=== PATIENT | female | born 2000 | race African-American/Black ===

== ENCOUNTER 2023-09-27 09:56 | Outpatient (CLI) | payer OTHER ==
--- NOTE | 2023-09-27 12:06 | MRI Report ---
PROCEDURE: Lower Leg (Tib-Fib) LT WO INDICATIONS: INJURY TO LEFT BROOKS, PAIN/TINGLING TECHNIQUE: Noncontrast coronal and sagittal T1 spin echo and STIR; axial T1 spin echo and T2 fast spin echo with fat saturation through the left lower leg. COMPARISON: None. FINDINGS: Image quality: Excellent. Bones: The visualized bone marrow demonstrates normal signal on all sequences. The overlying cortex appears intact. No fractures lines or intra-osseous lesions. Soft tissues: Mild linear subcutaneous scarring is seen at the anteromedial aspect of the proximal l ower leg. The scanned muscles demonstrate normal overall bulk and internal signal. No soft tissue ma sses are present. IMPRESSION: 1.Focal linear subcutaneous scarring at the anteromedial aspect of the lower leg. No soft tissue hliton a. No acute or chronic denervation changes. No soft tissue mass. 2.No acute trabecular bone injury or fracture. Reviewed by: Manuel Joy MD on 09/27/2023 12:05 PM PDT Approved by: Manuel Joy MD on 09/27/2023 12:05 PM PDT Station ID: [id number]
== END 2023-09-27 09:57 | disposition home or self-care (01) ==
LOC: DI 09:56
PROVIDERS: ATTEND Nurse Practitioner Family
DX: S89.90XA Unspecified injury of unspecified lower leg, initial encounter (principal)

== ENCOUNTER 2025-01-12 07:03 | Inpatient (IN) ==
[2025-01-12] MEDS ORDERED: SODIUM CHLORIDE FLUSH 0.9% 10 ML SYRINGE IVP PRN (07:27)
[2025-01-12] MEDS ORDERED: TERBUTALINE 1 MG/ML VIAL SUBQ PRN (07:27)
[2025-01-12] MEDS ORDERED: hydrALAZINE INJ 20 MG/ML VIAL IVP PRN (07:27)
[2025-01-12] MEDS ORDERED: TRANEXAMIC ACID IN NACL 1,000 MG/100 ML BAG IV PRN (07:27)
[2025-01-12] MEDS ORDERED: METHYLERGONOVINE 0.2 MG/ML VIAL IM PRN (07:27)
[2025-01-12] MEDS ORDERED: LABETALOL 20 MG/4 ML SYRINGE IVP PRN ×3 (07:27)
[2025-01-12] MEDS ORDERED: CARBOPROST TROMETHAMINE 250 MCG/ML VIAL IM PRN (07:27)
[2025-01-12] MEDS ORDERED: OXYTOCIN/SODIUM CHLORIDE 500 ML IV PRN (07:27)
[2025-01-12] MEDS ORDERED: LACTATED RINGERS 1,000 ML IV PRN (07:27)
[2025-01-12] MEDS ORDERED: SODIUM CHLORIDE FLUSH 0.9% 10 ML SYRINGE IVP SCH (08:00)
[2025-01-12 09:05] LABS: HCT - HEMATOCRIT 34.5 % (37.0-47.0); HGB - HEMOGLOBIN 10.6 g/dL (12.0-16.0); MEAN PLATELET VOLUME 10.6 fL (7.9-10.8); NRBC ABSOLUTE COUNT (AUTO) 0.00 x10^3/uL; NUCLEATED RED BLOOD CELLS AUTO 0.0 /100WBC; PLT - PLATELET COUNT 219 10^3/uL (130-450); RED CELL DISTRIBUTION WIDTH 14.6 % (12.0-15.0)
[2025-01-12 09:18] LABS: ALT ALANINE AMINOTRANSFERASE 9.0 IU/L (10-60); AST ASPARTATE AMINOTRANSFERASE 11.0 IU/L (10-42); BUN - BLOOD UREA NITROGEN 6.0 mg/dL (6-20); CARBON DIOXIDE - CO2 22.0 mmol/L (21-32); CREATININE 0.8 mg/dL (0.6-1.3); GFR - MDRD 105.0 (>89)
--- NOTE | 2025-01-12 09:59 | HISTORY & PHYSICAL EXAMINATION ---
Admit History Smoking Status: Former smoker HPI Current : Vital Signs Temperature 98.2 F 01/12/25 08:08 Pulse Rate 98 01/12/25 08:08 Respiratory Rate 18 01/12/25 08:08 Blood Pressure 133/85 H 01/12/25 08:08 Meds/Allgy Home Medications Ambulatory Orders Medication Instructions Recorded Confirmed vits no.126-ferrous fum tab PO 07/01/2401/08 28 mg iron-folic acid 800 mcg tablet (Classic ) aspirin 81 mg tablet 81 mg PO QDAY 08/21/2401/08 calcium carbonate (Tums) 300 mg PO BID 10/27/2401/08 breast pump #1 ea 11/06/24 01/08/25 blood-glucose meter (True Metrix #1 ea 12/12/24 Air Glucose Meter kit) blood sugar diagnostic (True #100 ea 12/15/24 01/08/25 Metrix Glucose Test Strip) lancets (Lancets,Ultra Thin) #100 ea 12/15/24 01/08/25 Allergies Allergies Allergy/AdvReac Type Severity Reaction Status Date / Time No Known Drug Allergies Allergy Verified 01/08/25 13:48 PFSH Active Problems All Active Problems (Updated 12/29/24 @ 15:11 by Nasrin Hughes MA) Supervision of high risk in third trimester (Acute) Glucosuria (Acute) Elevated random blood glucose level (Acute) Preeclampsia (Acute) Supervision of high risk in second trimester (Acute) Chronic hypertension affecting (Acute) Supervision of normal (Acute) Asthma (Acute) Medical History Medical History (Updated 12/29/24 @ 15:11 by Nasrin Hughes MA) Encounter for screening for Streptococcus B Positive test Family History Family History (Updated 07/01/24 @ 10:51 by Phoebe Bishop RN) Aunt Asthma Cancer Maternal grandmother High blood pressure Social History Social History (Updated 12/15/24 @ 03:42 by MALU Giang) Smoking Status: Smoker with current status unk Number of Years Smoked: 5 Do you dip or chew tobacco?: No ETOH Use: None Substance Use: denies use Physical Abdominal Exam Vital Signs: Temp Pulse Resp BP 98.2 F 98 18 133/85 H 01/12/25 08:08 01/12/25 08:08 01/12/25 08:08 01/12/25 08:08 Plan for Labor Plan For Labor I expect patient to be DC'd or transferred within 96 hours.: Yes Plan for Labor: Joey is a 24yo @ 37.0wks gestation by LMP c/w 10.3wk U/S who presents to [facility] for medical induction of labor due to preeclampsia without severe features. She denies vaginal bleeding, leakage of fluid or contractions. She reports consistent movements. She denies headaches, visual disturbances, RUQ or epigastric pain or edema. Upon arrival SVE was deferred due to early gestation and absence of contractions. FHR baseline 140s, moderate variability, + accels, no decels. No contractions appreciated via tocometry. She has been a patient of [facility] for the duration of her . Her has been complicated by chronic hypertension with superimposed preeclampsia without severe features. She is not on medications and her blood pressure has normalized since her diagnosis. She has been co-managed by midwifery care and physicians. We discussed if medications are required for management of blood pressure related complications, her care will be transferred to physicians for management. Pt and her partner both verbalized understanding. She will be admitted to [facility] for pre-induction cervical ripening with misoprostol. artist's representative physician notified of patient admission and will consult with change in patient status. In the event of an emergency, ACCEPTS the administration of blood products ; Partner Darrell G1: current LMP:04/28/24 CT by LMP: 02/02/25 U/S: @ 10.4wks c/w LMP dating. CT by LMP 02/03/[address]: 02/02/2025 Problems: Chronic hypertension: Multiple elevated blood pressures prior to 20 weeks. -Not current on medication and blood pressure has normalized. -Baseline labs: Platelets: 241, AST/ALT: 01/20, creatinine 0.8, P/C: 0.1. Unchanged on second trimester check. -Growth ultrasound scheduled 12/23 -Physician consult 09/19/2024 (see below) -Timing of delivery 37wks. Preeclampsia diagnosis 12/12/2024. Increased NST to twice weekly. 24 hour urine collection ordered 12/12/2024. Will plan for weekly serum labs until delivery. Discussed timing of IOL will be modified with this diagnosis. Glucosuria and elevated spot glucose (normal 1 hour gtt). Profiling supplies ordered 12/12/2024. Monthly growth scans ordered. Physician consult 09/19/[address] Quijano for Chronic hypertension: " Growth in the 40th percentile. Blood pressure is good today, we discussed timing of delivery. Likely 38-39+6. Will plan for monthly growth scans in the third trimester, surveillance at 32 weeks. Discussed baseline labs. No indication for medication today, but will likely see an increase in blood pressure in the third trimester. Plan to see her in 4 weeks for a physician visit, has interim group care visit. Encouraged activity in the 2nd and 3rd trimester" Physician consult 12/18/2024: Preeclampsia, chronic hypertension, glucose monitoring FOB: Male partner Darrell. 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 Stopped drinking alcohol due to . Denies current use of tobacco, marijuana or other recreational drugs. Reports that she is safe in current relationship. Family Hx: Denies family history of congenital anomalies, Cystic Fibrosis or chromosomal abnormalities Pre- weight:160 BMI: 28.3 Blood type: A+ Antibody screen: negative CBC: PLT 241 13.9/40.8 Rubella: Immune VZV: Immune HBsAg: Negative HepC: NR RPR/AB-EIA: NR HIV: NR COVID: x 3 PAP: unsure- but with in the last 3yrs and WNL, no hx abnormal. Complete pap GC/CT: 07/11/2024 negative HSV: denies in self and partner Genetic Testing: Quad screen: Negative/normal 09/02/2024 FAS: 08/22 Placenta: Anterior Cord: 3VC DAVID: 15.1cm EFW: 396g; 48%tile 12/12/2024: DAVID 15.3 12/24/2024: EFW 69.5%tile, DAVID 17.6cm 50gm GCT: 130 TDAP: 11/13/2024 Breast Pump: given 3rd trimester H/H PLT 11.8/36.7/ 219 GBS: POSITIVE Delivery plan: Epidural for pain management. Physical Exam: Normocephalic, atraumatic Heart RRR w/o M/G/R Lungs CTAB Abdomen gravid, soft, nontender EFW 3200g FHR baseline 140s, moderate variability, + accels, no decels No contractions appreciated via tocometry SVE deferred Bilateral LE's no edema Mood is good Assessment: 1. 24yo 2 37.0wks gestation by LMP c/w 10wk U/S 2. Preeclampsia without severe features -q 12 hrs CBC & CMP 3. Chronic hypertension - not on medication. BP normalized. 4. FHR Category I 5. GBS POSITIVE Plan: Admit to [facility] for pre-induction cervical ripening with 50mcg BC misoprostol q 4hrs. Will continue x 12 hours and reevaluate. Discussed placement of cervical ripening balloon at 12hrs vs 24hrs post-cervical ripening. Continuous monitoring. Initiate Ampicillin for GBS prophylaxis per protocol with SROM or onset of active labor. artist's representative physician notified of admission. Jacuzzi PRN. Nitrous oxide PRN. Epidural per maternal request. Anticipate . Conclusion/Plan Lab Results 01/12/25 08:50 01/12/25 08:50
[2025-01-12 20:20] LABS: HCT - HEMATOCRIT 35.9 % (37.0-47.0); HGB - HEMOGLOBIN 11.1 g/dL (12.0-16.0); MEAN PLATELET VOLUME 10.3 fL (7.9-10.8); PLT - PLATELET COUNT 236.0 10^3/uL (130-450); RED CELL DISTRIBUTION WIDTH 14.7 % (12.0-15.0)
[2025-01-12 21:05] LABS: ALT ALANINE AMINOTRANSFERASE 9.0 IU/L (10-60); AST ASPARTATE AMINOTRANSFERASE 11.0 IU/L (10-42); BUN - BLOOD UREA NITROGEN 7.0 mg/dL (6-20); CARBON DIOXIDE - CO2 22.0 mmol/L (21-32); CREATININE 1.0 mg/dL (0.6-1.3); GFR - MDRD 81.0 (>89)
--- NOTE | 2025-01-12 21:49 | PROVIDER PROGRESS NOTE ---
Labor Progress Note Labor Progress Note Labor Progress Note/Additional Text: S: Coping well with contractions. She states she is starting to feel more discomfort with them. She denies headache, visual disturbances, RUQ or epigastric pain. She denies vaginal bleeding or leakage of fluid. Her partner and mother in law are supportive at the bedside. O: FHR baseline 140s, moderate variability, + accels, no decels Contractions palpate mild every 2-6 minutes with soft resting tone SVE 3/60/-2, midposition. Medium consistency. Vertex. CBC & CMP Stable Occasional mildly elevated blood pressure A: 24yo @ 37.0wks gestation by 10.3wk U/S Chronic hypertension with superimposed preeclampsia without severe features Early labor GBS positive FHR Cateogry I P: Initiate pitocin for induction of labor with titration per protocol. Initiate ampicillin for GBS prophylaxis per protocol. Continuous monitoring. Continue q12hr CBC & CMP. Jacuzzi PRN. Nitrous oxide PRN. Epidural per maternal request. Anticipate .
[2025-01-12] MEDS: LACTATED RINGERS 1,000 ML IV SCH (22:01)
[2025-01-12] MEDS: OXYTOCIN/SODIUM CHLORIDE 500 ML IV SCH (22:01)
[2025-01-12] MEDS: AMPICILLIN 2 GM in SODIUM CHLORIDE 0.9% MINIBAG 100 ML IV ONE (22:06)
[2025-01-13] MEDS: AMPICILLIN 1 GM in SODIUM CHLORIDE 0.9% MINIBAG 100 ML IV SCH (02:05)
[2025-01-13] MEDS ORDERED: ONDANSETRON 4 MG/2 ML VIAL ONE (03:17)
[2025-01-13] MEDS: ONDANSETRON 4 MG/2 ML VIAL IVP PRN (03:28)
[2025-01-13] MEDS: fentaNYL 100 MCG/2 ML VIAL IVP PRN (03:46)
[2025-01-13] MEDS ORDERED: LIDOCAINE 2%-EPI 1:100000 20 ML MDV ONE (04:09)
[2025-01-13] MEDS ORDERED: ROPIVACAINE 0.2% 200 MG/100 ML BAG EP ONE (04:09)
[2025-01-13] MEDS ORDERED: ONDANSETRON 4 MG/2 ML VIAL IVP PRN (04:47)
[2025-01-13] MEDS ORDERED: ePHEDrine 50 MG/ML VIAL IVP PRN (04:47)
[2025-01-13] MEDS ORDERED: NALOXONE 0.4 MG/ML VIAL IVP PRN (04:47)
--- NOTE | 2025-01-13 04:47 | ANESTHESIA PROCEDURE NOTE ---
Pre-Anesthesia VS, & Labs Diagnosis Surgical Diagnosis:: Active labor Procedure Procedure: vaginal delivery Vitals Vital Signs: Temp Pulse Resp BP 36.5 C 98 17 142/75 H 01/12/25 19:15 01/12/25 08:08 01/12/25 19:15 01/12/25 19:15 NPO Last Fluid Intake: clear liquids Is Patient ?: Yes Lab Results Current Lab Results: Laboratory Tests 01/12/25 20:04: WBC 8.6, RBC 4.48, Hgb 11.1 L, Hct 35.9 L, MCV 80.1 L, MCH 24.8 L, MCHC 30.9 L, RDW 14.7, Plt Count 236, MPV 10.3, Sodium 135, Potassium 3.8, Chloride 106, Carbon Dioxide 22, Anion Gap 7.0, BUN 7, Creatinine 1.0, Estimated GFR (MDRD) 81 L, Glucose 124 H, Calcium 9.1, Total Bilirubin 0.3, AST 11, ALT 9 L, Alkaline Phosphatase 175 H, Total Protein 6.2 L, Albumin 3.3, Globulin 2.9, Albumin/Globulin Ratio 1.1 01/12/25 08:50: WBC 8.0, RBC 4.29, Hgb 10.6 L, Hct 34.5 L, MCV 80.4 L, MCH 24.7 L, MCHC 30.7 L, RDW 14.6, Plt Count 219, MPV 10.6, Neut # (Auto) 5.2, Lymph # (Auto) 1.9, [place] # (Auto) 0.7, Eos # (Auto) 0.1, Baso # (Auto) 0.0, Absolute Nucleated RBC 0.00, Nucleated RBC % 0.0, Sodium 135, Potassium 3.7, Chloride 106, Carbon Dioxide 22, Anion Gap 7.0, BUN 6, Creatinine 0.8, Estimated GFR (MDRD) 105, Glucose 129 H, Calcium 9.0, Total Bilirubin 0.4, AST 11, ALT 9 L, A lkaline Phosphatase 173 H, Total Protein 6.1 L, Albumin 3.2, Globulin 2.9, Albumin/Globulin Ratio 1.1, Blood Type A POSITIVE, Antibody Screen NEGATIVE Lab results reviewed: Yes 01/12/25 20:04 01/12/25 20:04 Meds/Allgy Home Medications Ambulatory Orders Medication Instructions Recorded Confirmed vits no.126-ferrous fum 1 tab PO DAILY 01/12/25 28 mg iron-folic acid 800 mcg tablet (Classic ) aspirin 81 mg tablet 81 mg PO DAILY 08/21/2410/01 calcium carbonate (Tums) 300 mg PO BID 10/27/2401/12 breast pump #1 ea 11/06/24 01/08/25 blood-glucose meter (True Metrix #1 ea 12/12/24 Air Glucose Meter kit) blood sugar diagnostic (True #100 ea 12/15/24 01/08/25 Metrix Glucose Test Strip) lancets (Lancets,Ultra Thin) #100 ea 12/15/24 01/08/25 Allergies Allergies Allergy/AdvReac Type Severity Reaction Status Date / Time No Known Drug Allergies Allergy Verified 01/08/25 13:48 PFSH Active Problems All Active Problems Supervision of high risk in third trimester (Acute) Glucosuria (Acute) Elevated random blood glucose level (Acute) Preeclampsia (Acute) Supervision of high risk in second trimester (Acute) Chronic hypertension affecting (Acute) Supervision of normal (Acute) Asthma (Acute) Medical History Medical History Encounter for screening for Streptococcus B Positive test Family History Family History (Updated 07/01/24 @ 10:51 by Phoebe Bishop RN) Aunt Asthma Cancer Maternal grandmother High blood pressure Social History Social History (Updated 12/15/24 @ 03:42 by MALU Giang) Smoking Status: Smoker with current status unk Number of Years Smoked: 5 Do you dip or chew tobacco?: No ETOH Use: None Substance Use: denies use POLST Patient has POLST: No POLST CPR Status: Attempt Resuscitation (CPR) Level of Medical Intervention: Full Treatment Anesthesia Exam (Expanded) Exam General: Alert, Oriented x3 and Cooperative Dental: WNL Mouth Openin Fingerbreadth Neck Mobility: Normal Mallampati classification: II Thyromental Distance: 4-6 cm Plan Plan Anesthesia Type: Epidural Consent for Procedure(s) Verified and Reviewed: Yes Code Status: Attempt Resuscitation ASA Classification ASA classification: 2-Mild systemic disease Is this case an emergency?: No
[2025-01-13 08:11] LABS: HCT - HEMATOCRIT 37.4 % (37.0-47.0); HGB - HEMOGLOBIN 11.2 g/dL (12.0-16.0); MEAN PLATELET VOLUME 10.8 fL (7.9-10.8); PLT - PLATELET COUNT 235.0 10^3/uL (130-450); RED CELL DISTRIBUTION WIDTH 14.8 % (12.0-15.0)
[2025-01-13 08:22] LABS: ALT ALANINE AMINOTRANSFERASE 9.0 IU/L (10-60); AST ASPARTATE AMINOTRANSFERASE 12.0 IU/L (10-42); BUN - BLOOD UREA NITROGEN 8.0 mg/dL (6-20); CARBON DIOXIDE - CO2 23.0 mmol/L (21-32); CREATININE 1.0 mg/dL (0.6-1.3); GFR - MDRD 81.0 (>89)
--- NOTE | 2025-01-13 10:25 | PROVIDER PROGRESS NOTE ---
Labor Progress Note Labor Progress Note Labor Progress Note/Additional Text: S: Feeling comfortable with epidural. Denies headache, visual disturbances, RUQ or epigastric pain. Small amount of bloody show with position changes. Mood is good. Her is supportive at the bedside. O: FHR baseline 140s, moderate variability, + accels, no decels Contractions palpate moderate every 4-8 minutes with soft resting tone SVE 5/70/-2, medium, Vertex. AROM moderate amount of clear fluid A: 24yo @ 37.1wks gestation Chronic hypertension with superimposed preeclampsia without severe features Early labor GBS positive FHR Category I P: Continue pitocin for induction of labor with titration per protocol. Continuous monitoring. Continue ampicillin for GBS prophylaxis per protocol. Maintain epidural for pain management. Encouraged rotation in bed on peanut ball. Anticipate .
[2025-01-13] MEDS: ROPIVACAINE 0.2% 200 MG/100 ML BAG EP PRN (11:58)
[2025-01-13] MEDS: OXYTOCIN 10 UNIT/ML VIAL IM PRN (13:26)
[2025-01-13] MEDS ORDERED: ACETAMINOPHEN 500 MG TABLET PO PRN (13:39)
[2025-01-13] MEDS ORDERED: WITCH HAZEL/GLYCERIN 1 PAD TOP PRN (13:39)
[2025-01-13] MEDS ORDERED: SIMETHICONE CHEW 80 MG TABLET PO PRN (13:39)
[2025-01-13] MEDS ORDERED: HYDROCORTISONE 1% CREAM 28 GM TUBE TOP PRN (13:39)
[2025-01-13] MEDS ORDERED: OXYTOCIN/SODIUM CHLORIDE 500 ML IV PRN (13:39)
--- NOTE | 2025-01-13 13:49 | DELIVERY NOTE ---
OB Labor and Delivery Note Delivery Comments (Free Text/Narrative) Delivery Comments (Free Text/Narrative): Labor: This 24 year old @ 37.1 wks gestation by LMP c/w 10wk U/S presented to [facility] for medical induction of labor secondary to chronic hypertension with superimposed preeclampsia without severe features. Cervical exam was deferred upon admission due to early gestation and absence of contractions. She was given 2 doses of 50mcg BC misoprostol. FHR demonstrated Category I pattern throughout labor. Normal labor course. Epidural placed per maternal request. AROM occurred @ 0804 and was noted to be a moderate amount of clear fluid. She progressed to c/c/+1 at 1238. : Normal SVB of viable female on 01/13/2025 @ 1317. No nucal cord. The was placed on maternal abdomen, stimulated, dried, and placed skin to skin. 's were 8/9 at 1 and 5 min respectively. Pitocin administered via IV for hemostasis. The umbilical cord was allowed to stop pulsating at which time it was doubly clamped by CNM and cut by FOB. Cord blood was obtained. 3VC. Fundal massage and gentle cord traction applied for active management of the third stage. Placenta delivered spontaneously and intact at 1320. QBL 360mm. IV infiltrated and pitocin infusion was shut off secondarily. 10mU IM pitocin a dministered followed by 600mcg BC misoprostol. Uterine fundus firm. Cervix at level of vaginal introitus and appears to be oozing but no obvious bleeding. Fourth stage: Uterine fundus firm and there is no excessive bleeding. The perineum, vagina, and cervix were inspected and found to be intact. Tissues well approximated. initiated. Both mother and baby were left in stable condition.
[2025-01-13] MEDS: ACETAMINOPHEN 500 MG TABLET PO PRN (15:11)
[2025-01-13] MEDS: IBUPROFEN 800 MG TABLET PO PRN (15:11)
[2025-01-13 21:16] LABS: HCT - HEMATOCRIT 34.0 % (37.0-47.0); HGB - HEMOGLOBIN 10.4 g/dL (12.0-16.0); MEAN PLATELET VOLUME 11.0 fL (7.9-10.8); NRBC ABSOLUTE COUNT (AUTO) 0.00 x10^3/uL; NUCLEATED RED BLOOD CELLS AUTO 0.0 /100WBC; PLT - PLATELET COUNT 235 10^3/uL (130-450); RED CELL DISTRIBUTION WIDTH 14.7 % (12.0-15.0)
[2025-01-13 21:31] LABS: ALT ALANINE AMINOTRANSFERASE 9.0 IU/L (10-60); AST ASPARTATE AMINOTRANSFERASE 14.0 IU/L (10-42); BUN - BLOOD UREA NITROGEN 12.0 mg/dL (6-20); CARBON DIOXIDE - CO2 22.0 mmol/L (21-32); CREATININE 1.4 mg/dL (0.6-1.3); GFR - MDRD 55.0 (>89)
[2025-01-13 21:36] LABS: SLIDE REVIEW? Indicated
[2025-01-13] MEDS: DOCUSATE SODIUM 100 MG CAPSULE PO SCH (22:23)
[2025-01-13 23:32] LABS: PLATELET MORPHOLOGY NORMAL APPEARANCE (NORMAL); RBC MORPHOLOGY (MULTIPLE) NORMAL APPEARANCE (NORMAL)
[2025-01-13 23:33] LABS: PLATELET ESTIMATE, MANUAL NORMAL (130-450,000) (NORMAL)
[2025-01-14] MEDS ORDERED: CALCIUM GLUC 1,000MG/50ML-NACL 1,000 MG/50 ML BAG IV ONE (00:46)
--- NOTE | 2025-01-14 00:52 | PROVIDER PROGRESS NOTE ---
Progress Note Progress Note Progress Note: Called to see patient by RN for significant headache. getting worse since delivery. not better at all when given tyelnol or motrin. behind eyes into temples. bp 134/83. exam: appears well. moving around in bed in the dark room swelling minimal. reflexes very brisk in legs and arms. Creatinine at 2100 up to 1.4. a/p although bp is not elevated, her elevated creatinine and headache along with very brisk reflexes are concerning and I recommend that she start magnesium for seizure prophylaxis. with this I also assume care of the patient from [facility]. given her elevated creatinine will give 4 gram of magnesium over 1 hr and then 1 gram an hour. recheck labs at 0500. oxycodone if the headache is not better with magnesium explained to patient and her partner. questions answered.
[2025-01-14] MEDS ORDERED: oxyCODONE 5 MG TABLET PO PRN (00:58)
[2025-01-14] MEDS: MAGNESIUM SULFATE 4 GRAM 4 GM/50 ML BAG IV ONE (01:40)
[2025-01-14] MEDS: MAGNESIUM SULFATE IN WATER 20 GM/500 ML IV.SOLN IV SCH (02:46)
[2025-01-14 07:39] LABS: BUN - BLOOD UREA NITROGEN 12.0 mg/dL (6-20); CARBON DIOXIDE - CO2 22.0 mmol/L (21-32); CREATININE 1.2 mg/dL (0.6-1.3); GFR - MDRD 66.0 (>89)
--- NOTE | 2025-01-14 09:16 | PROVIDER PROGRESS NOTE ---
Current Medications Current Medications Current Medications: Current Medications Generic Name Dose Route Start Last Admin Trade Name Freq PRN Reason Stop Dose Admin Acetaminophen 1,000 mg 01/12/25 07:27 01/14/25 06:13 Acetaminophen 500 Mg Tablet PO 1,000 mg Q8H PRN Administration Mild Pain or Fever>38C(100.4F) Acetaminophen 1,000 mg 01/13/25 13:39 Acetaminophen 500 Mg Tablet PO Q8HR PRN Mild Pain or Fever>38C(100.4F) Docusate Sodium 100 mg 01/13/25 21:00 01/13/25 22:23 Docusate Sodium 100 Mg Capsule PO 100 mg BID BARRY Administration Ephedrine Sulfate 5 mg 01/13/25 04:47 Ephedrine 50 Mg/Ml Vial IVP Q5M PRN For SBP<100;give until SBP>100 Hydralazine HCl 5 - 10 mg 01/12/25 07:27 Hydralazine Inj 20 Mg/Ml Vial IVP Q20M PRN SBP> or= 160 OR DBP> or= 110 Protocol Hydrocortisone 1 applic 01/13/25 13:39 Hydrocortisone 1% Cream 28 Gm Tube TOP QID PRN PERINEAL REPAIR Magnesium Sulfate 20 gm in 500 mls @ 25 mls/hr 01/14/25 00:38 01/14/25 02:46 Magnesium Sulf 20 G/500 Ml Bag IV 1 gm/hr .Q20H BARRY 25 mls/hr 1 GM/HR Administration Ibuprofen 800 mg 01/13/25 13:39 01/14/25 06:13 Ibuprofen 800 Mg Tablet PO 800 mg Q8HR PRN Administration Moderate Pain (Level 4-6) Labetalol HCl 20 mg 01/12/25 07:27 Labetalol 20 Mg/4 Ml Syringe IVP .ONCE PRN SBP> or= 160 OR DBP> or= 110 Protocol Labetalol HCl 20 - 40 mg 01/12/25 07:27 Labetalol 20 Mg/4 Ml Syringe IVP Q10M PRN SBP> or= 160 OR DBP> or= 110 Protocol Labetalol HCl 20 - 80 mg 01/12/25 07:27 Labetalol 20 Mg/4 Ml Syringe IVP Q10M PRN SBP> or= 160 OR DBP> or= 110 Protocol Nifedipine 10 - 20 mg 01/12/25 07:27 Nifedipine 10 Mg Capsule PO Q20M PRN SBP> or= 160 OR DBP> or= 110 Protocol Oxycodone HCl 5 mg 01/14/25 00:58 Oxycodone 5 Mg Tablet PO Q4HR PRN Moderate Pain (Level 4-6) Simethicone 80 mg 01/13/25 13:39 Simethicone Chew 80 Mg Tablet PO TID PRN Gas Witch Lucy/Glycerin 1 pad 01/13/25 13:39 Witch Lucy/Glycerin 1 Pad TOP PRN PRN PERINEAL REPAIR Objective Vital Signs/Intake & Output Vital Signs: Vital Signs x48h Temp Pulse Pulse Resp BP Pulse Ox 01/14/25 07:56 97.7 F 91 14 136/86 H 98 01/14/25 06:03 103 H 16 123/79 97 01/14/25 05:00 93 17 131/77 H 96 01/14/25 04:30 97 125/77 96 01/14/25 04:00 86 131/89 H 98 01/14/25 03:42 72 17 125/82 97 01/14/25 03:01 79 16 126/73 96 01/14/25 02:30 85 18 129/80 97 01/14/25 02:26 91 18 129/80 96 01/14/25 02:21 88 20 122/73 98 01/14/25 02:14 86 20 122/79 97 01/14/25 02:09 100 18 128/67 97 01/14/25 02:01 130/79 01/14/25 01:55 92 19 111/74 97 01/14/25 01:32 98.6 F 81 18 127/89 97 Intake & Output: Intake & Output 01/11/25 01/12/25 01/13/25 01/14/25 23:59 23:59 23:59 23:59 Intake Total 1000 / 1000 1050 / 1050 550 / 550 Output Total 1800 / 1800 1000 / 1000 1100 / 1100 Balance -800 / -800 50 / 50 -550 / -550 Weight (kg) 178 lb 4.005 oz 170 lb 9.6 oz Lab Results 01/13/25 21:10 01/14/25 07:15 Other Labs: Lab Results x24hrs 01/14/25 01/13/25 Range/Units 07:15 21:10 WBC 12.1 H (4.8-10.8) x10^3/uL RBC 4.25 (4.20-5.40) 10^6/uL Hgb 10.4 L (12.0-16.0) g/dL Hct 34.0 L (37.0-47.0) % MCV 80.0 L (81.0-99.0) fL MCH 24.5 L (27.0-31.0) pg MCHC 30.6 L (32.0-36.0) g/dL RDW 14.7 (12.0-15.0) % Plt Count 235 (130-450) 10^3/uL MPV 11.0 H (7.9-10.8) fL Neut # (Auto) 7.9 H (1.5-6.6) 10^3/uL Lymph # (Auto) 2.4 (1.5-3.5) 10^3/uL [place] # (Auto) 1.6 H (0.0-1.0) 10^3/uL Eos # (Auto) 0.1 (0.0-0.7) 10^3/uL Baso # (Auto) 0.0 (0.0-0.1) 10^3/uL Absolute Nucleated RBC 0.00 x10^3/uL Band Neuts % (Manual) Not Reportable Abnorm Lymph % (Manual) Not Reportable Nucleated RBC % 0.0 /100WBC Neutrophils # (Manual) Not Reportable Lymphocytes # (Manual) Not Reportable Monocytes # (Manual) Not Reportable Eosinophils # (Manual) Not Reportable Basophils # (Manual) Not Reportable Differential Comment MANUAL=AUTO DIFF Manual Slide Review Indicated Platelet Estimate NORMAL (130-450,000) (NORMAL) Platelet Morphology NORMAL APPEARANCE (NORMAL) RBC Morph Micro Appear NORMAL APPEARANCE (NORMAL) Sodium 136 133 L (135-145) mmol/L Potassium 4.0 3.9 (3.5-4.5) mmol/L Chloride 108 105 (101-111) mmol/L Carbon Dioxide 22 22 (21-32) mmol/L Anion Gap 6.0 6.0 (6-13) BUN 12 12 (6-20) mg/dL Creatinine 1.2 1.4 H (0.6-1.3) mg/dL Estimated GFR (MDRD) 66 L 55 L (>89) Glucose 117 H 103 (74-104) mg/dL Calcium 8.3 L 8.6 (8.5-10.3) mg/dL Magnesium 3.9 H (1.7-2.3) mg/dL Total Bilirubin 0.4 (0.2-1.0) mg/dL AST 14 (10-42) IU/L ALT 9 L (10-60) IU/L Alkaline Phosphatase 149 H (42-121) IU/L Total Protein 5.7 L (6.4-8.9) g/dL Albumin 2.9 L (3.2-5.5) g/dL Globulin 2.8 (2.1-4.2) g/dL Albumin/Globulin Ratio 1.0 (1.0-2.2) Assessment/Plan Problem List (1) Preeclampsia: Impression: TIME OF ENCOUNTER: 0019 S: Patient reports headache that has been increasing in intensity for the past 4 hours. She denies visual distrubances or RUQ pain. O: BP Normotensive at present time Creatinine 1.4 (admit 0.8) AST/ALT 14/9 Plt 235 DTRs brisk A: 24yo -->P1 PPD#1 s/p TSVD viable female infant on 01/13/2025 @ 1317 Preeclampsia with severe features Intact perineum P: on call pharmacy technician physician notified and MgSO4 will be initiated per protocol. Full care handed to precision agriculture technician physician Dr. Ireland who accepts care of patient at this time and will manage the patient for the remainder of her hospital course. Qualifiers: Trimester: unspecified trimester Qualified Code(s): O14.90 - Unspecified pre-eclampsia, unspecified trimester
--- NOTE | 2025-01-14 10:00 | PROVIDER PROGRESS NOTE ---
Subjective Prog Note Date Prog Note Date: 01/14/25 Prog Note Time: 10:02 Subjective Subjective: Reports feeling well this morning. Headache that she had last evening has completely resovled. No vision changes or upper abdominal pain. No CP, SOB. Reports that she feels great on the magnesium actually, not having any bothersome side effects. She is ambulating to the bathroom and urinating without difficulty, using hat to keep track of output, Feels that swelling is better. Bleeding is light. Current Medications Current Medications Current Medications: Current Medications Generic Name Dose Route Start Last Admin Trade Name Freq PRN Reason Stop Dose Admin Acetaminophen 1,000 mg 01/12/25 07:27 01/14/25 06:13 Acetaminophen 500 Mg Tablet PO 1,000 mg Q8H PRN Administration Mild Pain or Fever>38C(100.4F) Acetaminophen 1,000 mg 01/13/25 13:39 Acetaminophen 500 Mg Tablet PO Q8HR PRN Mild Pain or Fever>38C(100.4F) Docusate Sodium 100 mg 01/13/25 21:00 01/13/25 22:23 Docusate Sodium 100 Mg Capsule PO 100 mg BID BARRY Administration Ephedrine Sulfate 5 mg 01/13/25 04:47 Ephedrine 50 Mg/Ml Vial IVP Q5M PRN For SBP<100;give until SBP>100 Hydralazine HCl 5 - 10 mg 01/12/25 07:27 Hydralazine Inj 20 Mg/Ml Vial IVP Q20M PRN SBP> or= 160 OR DBP> or= 110 Protocol Hydrocortisone 1 applic 01/13/25 13:39 Hydrocortisone 1% Cream 28 Gm Tube TOP QID PRN PERINEAL REPAIR Magnesium Sulfate 20 gm in 500 mls @ 25 mls/hr 01/14/25 00:38 01/14/25 02:46 Magnesium Sulf 20 G/500 Ml Bag IV 1 gm/hr .Q20H BARRY 25 mls/hr 1 GM/HR Administration Ibuprofen 800 mg 01/13/25 13:39 01/14/25 06:13 Ibuprofen 800 Mg Tablet PO 800 mg Q8HR PRN Administration Moderate Pain (Level 4-6) Labetalol HCl 20 mg 01/12/25 07:27 Labetalol 20 Mg/4 Ml Syringe IVP .ONCE PRN SBP> or= 160 OR DBP> or= 110 Protocol Labetalol HCl 20 - 40 mg 01/12/25 07:27 Labetalol 20 Mg/4 Ml Syringe IVP Q10M PRN SBP> or= 160 OR DBP> or= 110 Protocol Labetalol HCl 20 - 80 mg 01/12/25 07:27 Labetalol 20 Mg/4 Ml Syringe IVP Q10M PRN SBP> or= 160 OR DBP> or= 110 Protocol Nifedipine 10 - 20 mg 01/12/25 07:27 Nifedipine 10 Mg Capsule PO Q20M PRN SBP> or= 160 OR DBP> or= 110 Protocol Oxycodone HCl 5 mg 01/14/25 00:58 Oxycodone 5 Mg Tablet PO Q4HR PRN Moderate Pain (Level 4-6) Simethicone 80 mg 01/13/25 13:39 Simethicone Chew 80 Mg Tablet PO TID PRN Gas Witch Lucy/Glycerin 1 pad 01/13/25 13:39 Witch Lucy/Glycerin 1 Pad TOP PRN PRN PERINEAL REPAIR Objective Vital Signs/Intake & Output Reviewed Vital Signs: Yes Vital Signs: Vital Signs x48h Temp Pulse Pulse Resp BP Pulse Ox 01/14/25 07:56 36.5 C 91 14 136/86 H 98 01/14/25 06:03 103 H 16 123/79 97 01/14/25 05:00 93 17 131/77 H 96 01/14/25 04:30 97 125/77 96 01/14/25 04:00 86 131/89 H 98 01/14/25 03:42 72 17 125/82 97 01/14/25 03:01 79 16 126/73 96 01/14/25 02:30 85 18 129/80 97 01/14/25 02:26 91 18 129/80 96 01/14/25 02:21 88 20 122/73 98 01/14/25 02:14 86 20 122/79 97 01/14/25 02:09 100 18 128/67 97 01/14/25 02:01 130/79 Intake & Output: Intake & Output 01/11/25 01/12/25 01/13/25 01/14/25 23:59 23:59 23:59 23:59 Intake Total 1000 / 1000 1050 / 1050 550 / 550 Output Total 1800 / 1800 1000 / 1000 1100 / 1100 Balance -800 / -800 50 / 50 -550 / -550 Weight (kg) 80.853 kg 77.383 kg Objective Comments/Other: Gen: NAD CV: RRR Resp: CTAB, no crackles Abd: soft, non tender Ext: only trace LE edema, no evidence of VTE Lab Results 01/13/25 21:10 01/14/25 07:15 Other Labs: Lab Results x24hrs 01/14/25 01/13/25 Range/Units 07:15 21:10 WBC 12.1 H (4.8-10.8) x10^3/uL RBC 4.25 (4.20-5.40) 10^6/uL Hgb 10.4 L (12.0-16.0) g/dL Hct 34.0 L (37.0-47.0) % MCV 80.0 L (81.0-99.0) fL MCH 24.5 L (27.0-31.0) pg MCHC 30.6 L (32.0-36.0) g/dL RDW 14.7 (12.0-15.0) % Plt Count 235 (130-450) 10^3/uL MPV 11.0 H (7.9-10.8) fL Neut # (Auto) 7.9 H (1.5-6.6) 10^3/uL Lymph # (Auto) 2.4 (1.5-3.5) 10^3/uL [place] # (Auto) 1.6 H (0.0-1.0) 10^3/uL Eos # (Auto) 0.1 (0.0-0.7) 10^3/uL Baso # (Auto) 0.0 (0.0-0.1) 10^3/uL Absolute Nucleated RBC 0.00 x10^3/uL Band Neuts % (Manual) Not Reportable Abnorm Lymph % (Manual) Not Reportable Nucleated RBC % 0.0 /100WBC Neutrophils # (Manual) Not Reportable Lymphocytes # (Manual) Not Reportable Monocytes # (Manual) Not Reportable Eosinophils # (Manual) Not Reportable Basophils # (Manual) Not Reportable Differential Comment MANUAL=AUTO DIFF Manual Slide Review Indicated Platelet Estimate NORMAL (130-450,000) (NORMAL) Platelet Morphology NORMAL APPEARANCE (NORMAL) RBC Morph Micro Appear NORMAL APPEARANCE (NORMAL) Sodium 136 133 L (135-145) mmol/L Potassium 4.0 3.9 (3.5-4.5) mmol/L Chloride 108 105 (101-111) mmol/L Carbon Dioxide 22 22 (21-32) mmol/L Anion Gap 6.0 6.0 (6-13) BUN 12 12 (6-20) mg/dL Creatinine 1.2 1.4 H (0.6-1.3) mg/dL Estimated GFR (MDRD) 66 L 55 L (>89) Glucose 117 H 103 (74-104) mg/dL Calcium 8.3 L 8.6 (8.5-10.3) mg/dL Magnesium 3.9 H (1.7-2.3) mg/dL Total Bilirubin 0.4 (0.2-1.0) mg/dL AST 14 (10-42) IU/L ALT 9 L (10-60) IU/L Alkaline Phosphatase 149 H (42-121) IU/L Total Protein 5.7 L (6.4-8.9) g/dL Albumin 2.9 L (3.2-5.5) g/dL Globulin 2.8 (2.1-4.2) g/dL Albumin/Globulin Ratio 1.0 (1.0-2.2) Assessment/Plan Problem List (1) care and examination of lactating mother: Impression: Continue routine care (2) Preeclampsia: Impression: - BPs currently normal range and asymptomatic. ALLISON yesterday with Cr of 1.4 which downtrended to 1.2. Excellent diuresis today. On magnesium sulfate for seizure prophylaxis, plan to discontinue after 24 hrs. Will order repeat labs for AM. Qualifiers: Trimester: unspecified trimester Qualified Code(s): O14.90 - Unspecified pre-eclampsia, unspecified trimester
[2025-01-15 07:28] LABS: HCT - HEMATOCRIT 32.1 % (37.0-47.0); HGB - HEMOGLOBIN 9.8 g/dL (12.0-16.0); MEAN PLATELET VOLUME 10.0 fL (7.9-10.8); PLT - PLATELET COUNT 225.0 10^3/uL (130-450); RED CELL DISTRIBUTION WIDTH 14.7 % (12.0-15.0)
[2025-01-15 07:49] LABS: ALT ALANINE AMINOTRANSFERASE 12.0 IU/L (10-60); AST ASPARTATE AMINOTRANSFERASE 18.0 IU/L (10-42); BUN - BLOOD UREA NITROGEN 11.0 mg/dL (6-20); CARBON DIOXIDE - CO2 24.0 mmol/L (21-32); CREATININE 1.0 mg/dL (0.6-1.3); GFR - MDRD 81.0 (>89)
[2025-01-15] MEDS: ACETAMINOPHEN 500 MG TABLET PO PRN (09:47)
--- NOTE | 2025-01-15 22:59 | PROVIDER PROGRESS NOTE ---
Progress Note Progress Note Progress Note: patient seen and examined at lunch time an din the am. She was breast feeding and doing well but still had a head ache . bps were good. labs improving. Seems to make sense fo her to stay over night anohte rnight. plan for dc tomorrow.
--- NOTE | 2025-01-16 08:46 | Discharge Summary ---
Discharge Summary Admit Date: 01/12/25 Discharge Date: 01/16/25 Discharging Provider: Garett Quijano MD Code Status: Attempt Resuscitation DIAGNOSES Admission Diagnoses: Chronic hypertension Elevated glucose in 37 weeks gestation Discharge Diagnoses with Status of Each Condition: Same Preeclampsia severe features Status post spontaneous vaginal delivery Delivered of lan HPI History of Present Illness: Subjective Patient reports she is doing well. Lochia appropriate. Denies heavy bleeding. Ambulating. Pelvic and abdominal pain well-controlled. Tolerating oral intake. Diet: Regular. Voiding without difficulty. Passing flatus. Denies BM. Patient is bonding with baby in room Feeding doing well Denies feeling lightheaded, dizzy or excessively fatigued. Objective General: Alert, oriented, no apparent distress. Cardiovascular: Regular rate. Regular rhythm. Lungs: No increased work of breathing. Abdomen: Uterus firm. Below umbilicus. No guarding or rebound. Extremities: No pain on palpation. No cords palpated. Distal pulses intact. HOSPITAL COURSE Hospital Course: Patient was admitted for induction of labor secondary to chronic hypertension with superimposed preeclampsia. She had induction of labor and subsequent delivery spontaneous vaginal delivery that was uncomplicated. , she developed severe features, although no severe range pressures. She was started on magnesium sulfate for a headache, acute kidney injury, and this improved. Labs gradually proved during stay and remained stable afterwards. She was discharged on day 3. She was counseled on pression, preeclampsia severe features, other routine care. ALLERGIES Allergies Allergy/AdvReac Type Severity Reaction Status Date / Time No Known Drug Allergies Allergy Verified 01/08/25 13:48 MEDICATIONS Ambulatory Orders Medication Instructions Recorded Confirmed vits no.126-ferrous fum 1 tab PO DAILY 01/12/25 28 mg iron-folic acid 800 mcg tablet (Classic ) calcium carbonate (Tums) 300 mg PO BID 10/27/2401/12 breast pump #1 ea 11/06/24 01/08/25 PHYSICAL EXAM AT DISCHARGE Vital Signs: Vital Signs x48h Temp Pulse Resp BP 01/16/25 04:56 36.8 C 78 16 133/81 H LABS 01/15/25 07:18 01/15/25 07:18 FOLLOW UP Follow Up: With [facility] women's care in 1 week TIME SPENT Time Spent in Discharge (Minutes): 30 Discharge Plan Discharge Patient Disposition: 01 Home, Self Care Prescriptions: Continued (DME) breast pump Device See Rx Instructions .Route Qty: 1 0RF Rx Instructions: As directed Tums 300 mg (750 mg) tablet,chewable 300 mg PO BID Classic 28 mg iron- 800 mcg tablet 1 tab PO DAILY Discontinued aspirin 81 mg tablet 81 mg PO DAILY (DME) blood-glucose meter [True Metrix Air Glucose Meter] Kit See Rx Instructions .Route Qty: 1 0RF Rx Instructions: As directed (DME) lancets [Lancets,Ultra Thin] Misc See Rx Instructions .Route Qty: 100 2RF Rx Instructions: As directed. Use to take blood sugar 4x each day. (DME) True Metrix Glucose Test Strip Strip See Rx Instructions .ROUTE .MEDSUPPLY Qty: 100 3RF Rx Instructions: As directed. Use to take blood glucose 4x/day Activity Restrictions: Additional Comments Diet: Regular Print Language: Lebanese Patient Instructions: After a Vaginal , Depression, Understanding Preeclampsia Follow-up Care: Garett Quijano MD [Provider Admit Priv/Credential, Obstetrics/Gynecology] Vitals documented within 30 minutes of discharge?: Yes
[2025-01-16 12:08] VITALS: TEMP 98.6; O2SAT 97
[2025-01-16 16:05] VITALS: BP 129/84
--- NOTE | 2025-01-16 17:32 | Labor Flowsheet ---
Labor Flowsheet Datetime Report Generated by CPN: 01/16/2025 17:32 Datetime: 01/14/2025 07:56 VITAL SIGNS NBP Sys/Bianca/Mean (mmHg): 136 : 86 : 97 Pulse: 91 Datetime: 01/14/2025 05:35 SpO2 (%): 97 Datetime: 01/14/2025 03:41 Stage of : Pain Assessment Comments: bp inacurrate due to pt moving arm. will retake Datetime: 01/13/2025 17:52 Temperature (C): 37.2 Datetime: 01/13/2025 16:00 COMMUNICATION Communication: RN at Bedside (Annotations: Epidural cath discontinued/ catheter tip intact/) Datetime: 01/13/2025 15:00 Membranes Ruptured Date/Time: 01/13/2025 08:04 Cervical Ripening Agents: Cytotec @ Datetime: 01/13/2025 13:42 Medication Comments: misoprostol 800 mcg MI Datetime: 01/13/2025 13:26 MEDICATIONS Pitocin (milliunits): Oxytocin 10 U IM Datetime: 01/13/2025 13:17 Communication Comments: Delivery of alive baby Girl Datetime: 01/13/2025 13:16 LaborFlag: Labor Datetime: 01/13/2025 13:10 UTERINE ACTIVITY Monitor Mode: External Frequency (min): 2-3 Quality: Strong Duration (sec): 60-70 Pattern: Normal: <= 5 Contractions in 10 Minutes Resting Tone (Palpate): Relaxed Pitocin Checklist: At Least 1 Acceleration of 15 bpm x 15 Seconds in 30 Minutes or Adequate Variability; No More than 1 Late Deceleration Occurred in Past 30 Minutes; No More than 2 Variable Decelerations > 60 Seconds in Duration and decreasing >60 bpm in 30 minutes; No More than 5 Uterine Contractions in 10 Minutes for any 20 Minute Interval; Uterus Palpates Soft between Contractions ASSESSMENT A Monitor Mode: External US FHR Baseline Rate : 130 Variability: Moderate 6-25 bpm Accelerations: 15X15 Decelerations: None Category: Category I Oxygen Method: Room Air Datetime: 01/13/2025 12:58 Comments: Audible FHR no relfected in the monitor Datetime: 01/13/2025 12:44 Patient Care Comments: Catether removed Datetime: 01/13/2025 12:38 VAGINAL EXAM Dilatation (cm): 10.0 Effacement (%): 100 Exam by: Vickie Jan Datetime: 01/13/2025 12:17 Respirations: 18 Datetime: 01/13/2025 11:00 Monitor Interventions for UA: [place] Adjusted Contraction Comments: monitor unable to read patient contractions Datetime: 01/13/2025 09:29 Patient Position/Activity: Left Extreme Datetime: 01/13/2025 08:15 Pain Presence: None/Denies Pain Type: N/A Pain Relief Measures: Epidural Given Datetime: 01/13/2025 08:07 TEACHING Instructional Method: Verbal Plan of Care: Vaginal Delivery Teaching Comments: Provided education to patient about labor stages. Datetime: 01/13/2025 08:04 Membrane Status: Ruptured Membranes Rupture Method: Artificial Amniotic Fluid Color: Clear Amniotic Fluid Amount: Moderate Amniotic Fluid Odor: Normal Membrane Comments: Membrane rupture by Provider Vickie Montoya [facility] performed Datetime: 01/13/2025 07:30 MATERNAL ASSESSMENT Level of Consciousness: Alert DTR's/Clonus: No Clonus Headache: Denies Breath Sounds, Left: Clear and Equal Breath Sounds, Right: Clear and Equal Nausea/Vomiting: Denies RUQ Epigastric Pain: Denies Datetime: 01/13/2025 06:42 Monitor Interventions for FHR: Ultrasound Adjusted Datetime: 01/13/2025 06:36 Hygiene: Sabiha Care I/O Interventions: Ice Chips Given Datetime: 01/13/2025 06:29 Notification Reason: Status Update; Labor Status; Membrane Status; Uterine Activity; Pain Datetime: 01/13/2025 06:01 PAIN Pain Scale: 0 Antibiotics: Ampicillin IV 1 Gm Datetime: 01/13/2025 05:00 Station: -2 Vaginal Bleeding: None Cervix, Consistency: Soft Cervix, Position: Midposition Anesthesia Level Check: T10- Umbilicus Unit Routine: Safety/Fall Risk Prevention Labor/Induction: Activity Pain Management: Epidural PTL/PROM: Hydration Related: Activity and Rest Datetime: 01/13/2025 04:29 Epidural Procedure: Loading Dose Datetime: 01/13/2025 04:13 PROCEDURE TIME OUT Procedure Verify: Correct Patient Identity; Accurate Procedure Consent Form; Agreement on Procedure to be Done; Addressed Need to Administer Antibiotics or Fluids for Irrigation; Safety Precautions Based on Patient History or Medication Use ANESTHESIA Anesthesia Plans: Epidural Datetime: 01/13/2025 04:00 Medications: IV Narcotics Datetime: 01/13/2025 03:56 Consults: Anesthesia Datetime: 01/13/2025 03:44 Pain Coping: Requesting Pain Medication or Epidural Datetime: 01/13/2025 03:16 Provider Notified (Name): A. Jan, CNM Datetime: 01/13/2025 01:56 Pain Location: Back Datetime: 01/13/2025 01:30 Comfort Measures: Breathing/Relaxation Datetime: 01/12/2025 22:01 PATIENT CARE IV/Blood Work: IV Infusing per Order; New IV Bag Hung; IV Bag Number @ 1 Datetime: 01/12/2025 22:00 Temperature Route: Oral Datetime: 01/12/2025 19:01 Nurse Giving Report: Enrique Phillip RN Nurse Receiving Report: Jerrod Bertrand RN Datetime: 01/12/2025 17:57 Provider Reviewed Strip: Yes Datetime: 01/12/2025 13:57 Vital Sign Comments: Pt lying on right side and BP taken on right arm. Repeat done on left side and nml. Denies pre-e symptoms.
[2025-01-17] MEDS ORDERED: PRENATAL VITAMIN TABLET PO SCH (08:00)
== END 2025-01-16 17:31 | disposition home or self-care (01) | DRG 807 ==
LOC: WFO 07:03 → FBP 07:07
PROVIDERS: ADMIT Nurse Practitioner Obstetrics & Gynecology; ATTEND Nurse Practitioner Obstetrics & Gynecology